=== PATIENT | female | born 1975 | race Asian ===

== ENCOUNTER 2022-08-18 20:41 | Emergency (ER) | payer OTHER ==
[~2022-08-18] VITALS: Ht 160 cm; Wt 79.4 kg
[2022-08-18 20:55] VITALS: BP 138/82
--- NOTE | 2022-08-18 20:58 | NUR ---
TO LOBBY A/W BED AMBULATORY
--- NOTE | 2022-08-18 21:55 | NUR ---
Patient lying in bed, A/Ox4, chest rise and fall symmetrical, no s/s of distress, on monitor.
--- NOTE | 2022-08-18 22:19 | NUR ---
Patient being evaluated by physician
[2022-08-18 22:24] LABS: BASOPHILS # (AUTO) 0.1 K/uL (0.00-0.22); BASOPHILS % (AUTO) 0.6 % (0.0-2.0); EOSINOPHILS # (AUTO) 0.1 K/uL (0-0.4); EOSINOPHILS % (AUTO) 0.5 % (0.0-4.0); HEMATOCRIT 36.2 % (36-48); HEMOGLOBIN 12.1 g/dL (12.0-16.0); LYMPHOCYTES # (AUTO) 2.6 K/uL (2.5-16.5); LYMPHOCYTES % (AUTO) 24.4 % (20.5-51.1); MEAN CORPUSCULAR HEMOGLOBIN 29 pg (27-31); MEAN CORPUSCULAR HGB CONC 34 g/dL (33-37); MEAN CORPUSCULAR VOLUME 85.9 fL (80-94); MONOCYTES # (AUTO) 0.3 K/uL (0.8-1.0); MONOCYTES % (AUTO) 3.3 % (1.7-9.3); NEUTROPHILS # (AUTO) 7.5 K/uL (1.8-7.7); NEUTROPHILS % (AUTO) 71.2 % (42.2-75.2); PLATELET COUNT (AUTO) 371 K/uL (140-450); RED BLOOD CELL COUNT(AUTO) 4.22 MIL/uL (4.20-5.40); RED CELL DISTRIBUTION WIDTH 13.8 % (11.6-13.7); WHITE BLOOD COUNT (AUTO) 10.6 K/uL (4.8-10.8)
[2022-08-18 22:38] LABS: ALBUMIN 3.5 g/dL (3.4-5.0); ANION GAP 11.1 (8-16); ASPARTATE AMINOTRANSFERASE 17 U/L (15-37); CARBON DIOXIDE 28.9 mmol/L (21-32); CHLORIDE 103 mmol/L (98-107); CREATININE 0.8 mg/dL (0.6-1.3); GFR ARICAN-AMERICAN 99 mL/min (>90); GLUCOSE 128 mg/dL (74-106); SODIUM SERUM 139 mmol/L (136-145); TOTAL BILIRUBIN 0.2 mg/dL (0.0-1.0); UREA NITROGEN, BLOOD 13 mg/dL (7-18)
[2022-08-18] MEDS ORDERED: KETOROLAC 15 MG/ML VIAL IM ONE (22:40)
[2022-08-18] MEDS ORDERED: ACETAMINOPHEN 325 MG TAB PO ONE (22:40)
--- NOTE | 2022-08-18 22:44 | NUR ---
PT TAKEN TO BED 2
--- NOTE | 2022-08-18 23:10 | NUR ---
Patient lying in bed, A/Ox4, chest rise and fall symmetrical, no s/s of distress, on monitor.
[2022-08-18 23:12] LABS: FREE T4 (FREE THYROXINE) 0.88 ng/dL (0.76-1.46); THYROID STIMULATING HORMONE 3.42 uIU/mL (0.34-3.74)
[2022-08-19 00:41] VITALS: BP 117/65
--- NOTE | 2022-08-19 00:42 | NUR ---
Patient discharged with v/s stable. Written and verbal after care instructions given and explained. Patient verbalized understanding. Ambulatory with steady gait. All questions addressed prior to discharge. Advised to follow up with PMD.
== END 2022-08-19 00:42 | disposition home or self-care (01) ==
LOC: MED 20:41
DX: R07.89 Other chest pain (principal); M54.6 Pain in thoracic spine; M79.10 Myalgia, unspecified site
CPT/HCPCS: 36415; 80053; 84439; 84443; 84484; 85025; 93005; 96372; 99284; J1885